=== PATIENT | female | born 1960 | race Caucasian/White ===

== ENCOUNTER 2025-02-18 17:19 | Observation (INO) ==
--- NOTE | 2025-02-18 17:33 | ED Physician Documentation ---
History of Present Illness Stated complaint Stated Complaint: HIGH BLOOD SUGAR Chief complaint Chief Complaint: General History obtained from History obtained from: Patient and EMS Additonal information Additional information: 65-year-old woman with history of dementia and diabetes sent in from [facility] for uncontrolled blood sugars. It looks like she was out of the facility for a few days, it is not clear why. On return she was started on her prior doses of insulin although couple of days ago she was switched from Lantus to a biosimilar. She was getting 7 units in the morning and 3 in the evening, now is getting 8 in the morning and 6 in the evening as well as a sliding scale but the max dose on the sliding scale is 5 units of Humalog. Patient is unreliable historian. She does not know why she is here. Meds/Allgy Allergies Allergies Allergy/AdvReac Type Severity Reaction Status Date / Time No Known Drug Allergies Allergy Verified 02/18/25 17:25 PFSH Active Problems All Active Problems (Updated 02/18/25 @ 19:34 by Humberto You MD) Acute kidney injury superimposed on CKD (Acute) Uncontrolled diabetes mellitus (Acute) Social History Social History Do you feel safe in your home environment?: Yes Suffered physical, verbal, emotional, or financial abuse?: No Exam Exam Vital Signs: Vital Signs x48h Temp Pulse Resp BP Pulse Ox 02/18/25 19:22 72 18 101/83 98 02/18/25 17:25 36.8 C 60 16 101/83 98 Constitutional Alert but confused, in no distress with unremarkable vital signs Gastrointestinal abdomen normal to inspection, abdomen soft to palpation and nontender to palpation Results Vitals Vitals: Vital Signs - 24 hr 02/18/25 17:25 02/18/25 19:22 Temperature 36.8 C Temperature Source Tympanic Pulse Rate 60 72 Respiratory Rate 16 18 Blood Pressure 101/83 101/83 O2 Saturation 98 98 O2 Source Room air Room air Pain Intensity 0 0 Oxygen O2 Source Room air Labs Labs: Laboratory Tests 02/18/25 02/18/25 02/18/25 17:28 17:43 18:43 WBC 5.9 RBC 3.63 L Hgb 11.1 L Hct 34.8 L MCV 95.9 MCH 30.6 MCHC 31.9 L RDW 13.3 Plt Count 215 MPV 11.1 H Neut # (Auto) 4.6 Lymph # (Auto) 0.8 L [place] # (Auto) 0.4 Eos # (Auto) 0.1 Baso # (Auto) 0.0 Absolute Nucleated RBC 0.00 Nucleated RBC % 0.0 Sodium 132 L Potassium 4.2 Chloride 100 L Carbon Dioxide 24 Anion Gap 8.0 BUN 44 H Creatinine 2.6 H Estimated GFR (MDRD) 19 L Glucose 536 H* POC Whole Bld Glucose 488 476 Calcium 8.7 Total Bilirubin 0.4 AST 20 ALT 15 Alkaline Phosphatase 94 Total Protein 6.3 L Albumin 3.7 Globulin 2.6 Albumin/Globulin Ratio 1.4 PD Medical Decision Making ED course ED course: 65-year-old woman with memory issues presents from a memory care facility with high blood sugars. She is on relatively low doses of insulin, and she was seen by me and we started IV fluids and insulin. Workup demonstrates modest anemia on CBC and CMP showing hyperglycemia with probably pseudohyponatremia, she also has prerenal azotemia of the acuity which is unclear. I do not have any old labs on her. I called [facility] and they tell me she was hospitalized at [facility] a few days ago so we will try to get a discharge summary to see if the kidney issue is acute versus chronic. After the first 10 units of insulin, IV fluids and an hour her blood sugar came down to 476. 10 units of regular insulin was repeated. 64-year-old woman with recalcitrant type 2 diabetes. Initially unaccompanied. Later her friend/POA showed up and confirmed that the kidney function probably is acute and they have been having trouble with her blood sugars lately. Given her recalcitrant hyperglycemia and LOULOU on CKD spoke with MIRIAM Quintero for o bservation at 7:30 PM. Discharge Plan Discharge Patient Disposition: ED Place in Observation Condition: Fair Clinical Impression: Uncontrolled diabetes mellitus, Acute kidney injury superimposed on CKD Print Language: Yi Stand Alone Forms: PCP List
[2025-02-18] MEDS: SODIUM CHLORIDE 0.9% 1,000 ML IV STA (17:40)
[2025-02-18] MEDS: INSULIN REGULAR, HUMAN 300 UNIT/3 ML PEN IVP STA ×2 (17:42→18:53)
[2025-02-18 17:48] LABS: BASOPHILS % (AUTO) 0.7 %; EOSINOPHILS # (AUTO) 0.1 10^3/uL (0.0-0.7); EOSINOPHILS % (AUTO) 0.9 %; HCT - HEMATOCRIT 34.8 % (37.0-47.0); HGB - HEMOGLOBIN 11.1 g/dL (12.0-16.0); LYMPHOCYTES # (AUTO) 0.8 10^3/uL (1.5-3.5); LYMPHOCYTES % (AUTO) 14.2 %; MEAN CORPUSCULAR HEMOGLOBIN 30.6 pg (27.0-31.0); MEAN CORPUSCULAR HGB CONC 31.9 g/dL (32.0-36.0); MEAN CORPUSCULAR VOLUME 95.9 fL (81.0-99.0); MEAN PLATELET VOLUME 11.1 fL (7.9-10.8); MONOCYTES # (AUTO) 0.4 10^3/uL (0.0-1.0); MONOCYTES % (AUTO) 6.3 %; NEUTROPHILS # (AUTO) 4.6 10^3/uL (1.5-6.6); NEUTROPHILS % (AUTO) 77.6 %; PLT - PLATELET COUNT 215 10^3/uL (130-450); RED BLOOD COUNT 3.63 10^6/uL (4.20-5.40); RED CELL DISTRIBUTION WIDTH 13.3 % (12.0-15.0); WHITE BLOOD COUNT 5.9 x10^3/uL (4.8-10.8)
[2025-02-18 18:10] LABS: ALBUMIN 3.7 g/dL (3.2-5.5); ALBUMIN/GLOBULIN RATIO 1.4 (1.0-2.2); BILIRUBIN,TOTAL 0.4 mg/dL (0.2-1.0); CALCIUM 8.7 mg/dL (8.5-10.3); CREATININE 2.6 mg/dL (0.6-1.3); POTASSIUM 4.2 mmol/L (3.5-4.5); TOTAL PROTEIN 6.3 g/dL (6.4-8.9)
[2025-02-18] MEDS: SODIUM CHLORIDE 0.9% 1,000 ML IV ONE (19:49)
--- NOTE | 2025-02-18 20:47 | HISTORY & PHYSICAL EXAMINATION ---
Chief Complaint Chief Complaint Chief Complaint: High blood sugar History of Present Illness Admitted From Admitted From:: [facility] History Obtained From History obtained from: Patient and ex- at bedside History of Present Illness HPI Comment/Other: 64-year-old female with dementia, DM and CKD stage III who had recently been held in observation at [facility] in [place] for acute kidney injury on top of CKD. She was discharged to [facility], ex reports that the insulin regimen that she was on there does not exactly meet what endocrinology at [facility] recommended. Her blood sugars have increased, and it was 536 on chemistry at presentation. In the ER, she was noted to have a creatinine of 2.6. It is believed that this is an LOULOU on top of her CKD stage III likely brought on by her uncontrolled hyperglycemia. She received 10 units of insulin, which brought her sugar down to 476. She was given another 10 units of insulin and an IV fluid bolus and hospitalist was contacted for observation for hyperglycemia and acute kidney injury Meds/Allgy Home Medications Ambulatory Orders Medication Instructions Recorded Confirmed citalopram 10 mg tablet 20 mg PO DAILY 02/18/2506/08 galantamine 24 mg 24 hr 24 mg PO AC 02/18/25 5 capsule,extended release insulin glargine 100 unit/mL (3 8 unit subcut DAILY 02/19/25 mL) subcutaneous pen (Lantus Solostar U-100 Insulin) insulin lispro 100 unit/mL 1 - 5 unit subcut TIDWM 05/0802/19/25 subcutaneous pen memantine 10 mg tablet 10 mg PO BID 02/18/25 trazodone 50 mg tablet 50 - 100 mg PO QPM PRN insom nikhil 02/18/25 02/19/25 cholecalciferol (vitamin D3) 50 50 mcg PO DAILY 02/19/25 mcg (2,000 unit) capsule cyanocobalamin (vitamin B-12) 250 250 mcg PO DAILY 06/0802/19/25 mcg tablet (Vitamin B-12) insulin glargine 100 unit/mL (3 4 unit subcut QPM 06/0802/19/25 mL) subcutaneous pen (Basaglar KwikPen U-100 Insulin) Allergies Allergies Allergy/AdvReac Type Severity Reaction Status Date / Time No Known Drug Allergies Allergy Verified 02/18/25 17:25 PFSH Active Problems All Active Problems (Updated 02/18/25 @ 21:39 by Sarah Frankel RN) Acute kidney injury superimposed on CKD (Acute) Uncontrolled diabetes mellitus (Acute) Social History Social History Smoking Status: Never smoker Second hand tobacco smoke exposure: No Do you dip or chew tobacco?: No Do you vape?: No Relationship: Friend Level: Independent Do you feel safe in your home environment?: Yes Suffered physical, verbal, emotional, or financial abuse?: No Review of Systems Patient and family at bedside report absolutely no symptoms, only that she had a high blood sugar Status of ROS: 10 or more systems reviewed and unremarkable except as noted in history and below Exam Exam Vital Signs: Vital Signs x48h Temp Pulse Resp BP Pulse Ox 02/19/25 09:00 36.4 C L 53 L 18 138/63 H 99 02/19/25 04:58 36.3 C L 54 L 18 141/65 H 98 Constitutional normal general appearance and no apparent distress Elderly appearing female in no acute distress HENMT normocephalic and head/scalp atraumatic Eyes PERRL Neck/C-Spine visual inspection normal Lymph no lymphadenopathy noted Chest inspection of chest normal Respiratory breath sounds equal bilaterally Cardiovascular normal heart rate noted and regular rhythm noted Gastrointestinal abdomen normal to inspection Extremities normal to inspection Neurology GCS 15 Psychiatry Intermittently confused, demented at baseline Skin skin color normal Conclusion/Plan Problem List (1) Acute kidney injury superimposed on CKD: Plan: Received 1 L fluid bolus in the ER I ordered an additional liter of saline BMP in a.m. Ex- at bedside reports that she has had a renal ultrasound at a recent bilingual speech language pathologist visit, and that it is consistent with CKD She is probably just dehydrated from having such a high sugar, hyperglycemia managed as below (2) Uncontrolled diabetes mellitus: Plan: Ex- reports that this is type 1 diabetes. She states that the facility was not following the recommended insulin regimen from endocrinology. Nutrition consult for diabetes management A1c in a.m. I started her on 10 units of Lantus twice daily and a moderate sliding scale insulin Facility records show 8 units Lantus in the morning and 6 at night as well as a low sliding scale insulin Plan Placed in observation DNR/DNI Her ex- is her surrogate decision maker and power of erisa attorney Lab Results Lab results reviewed: Yes 02/19/25 05:00 02/19/25 05:00 Core Measures Anticipated LOS I expect patient to be DC'd or transferred within 96 hours.: Yes DVT/VTE - Prophylaxis VTE/DVT Prophylaxis med ordered at admit?: Yes
[2025-02-18] MEDS ORDERED: INSULIN GLARGINE-YFGN 300 UNIT/3 ML PEN SUBQ SCH (21:00)
[2025-02-18] MEDS ORDERED: ONDANSETRON ODT 4 MG TABLET TL PRN (21:13)
[2025-02-18] MEDS ORDERED: ACETAMINOPHEN 325 MG TABLET PO PRN (21:13)
[2025-02-18] MEDS ORDERED: ONDANSETRON 4 MG/2 ML VIAL IVP PRN (21:13)
[2025-02-18] MEDS ORDERED: SODIUM CHLORIDE FLUSH 0.9% 10 ML SYRINGE IVP PRN (21:13)
[2025-02-18] MEDS: LACTATED RINGERS 1,000 ML IV SCH (22:01)
[2025-02-18] MEDS: INSULIN GLARGINE-YFGN 300 UNIT/3 ML PEN SUBQ SCH (22:04)
[2025-02-18] MEDS: INSULIN LISPRO 300 UNIT/3 ML PEN SUBQ SCH (22:06)
[2025-02-18] MEDS: SODIUM CHLORIDE FLUSH 0.9% 10 ML SYRINGE IVP SCH (22:12)
[2025-02-19 05:30] LABS: BASOPHILS # (AUTO) 0.1 10^3/uL (0.0-0.1); BASOPHILS % (AUTO) 0.9 %; EOSINOPHILS # (AUTO) 0.1 10^3/uL (0.0-0.7); EOSINOPHILS % (AUTO) 2.4 %; HCT - HEMATOCRIT 36.2 % (37.0-47.0); HGB - HEMOGLOBIN 11.7 g/dL (12.0-16.0); LYMPHOCYTES # (AUTO) 1.2 10^3/uL (1.5-3.5); LYMPHOCYTES % (AUTO) 22.4 %; MEAN CORPUSCULAR HEMOGLOBIN 30.7 pg (27.0-31.0); MEAN CORPUSCULAR HGB CONC 32.3 g/dL (32.0-36.0); MEAN PLATELET VOLUME 10.9 fL (7.9-10.8); MONOCYTES # (AUTO) 0.4 10^3/uL (0.0-1.0); NEUTROPHILS # (AUTO) 3.6 10^3/uL (1.5-6.6); NEUTROPHILS % (AUTO) 66.1 %; PLT - PLATELET COUNT 210 10^3/uL (130-450); RED BLOOD COUNT 3.81 10^6/uL (4.20-5.40); RED CELL DISTRIBUTION WIDTH 13.2 % (12.0-15.0); WHITE BLOOD COUNT 5.4 x10^3/uL (4.8-10.8)
[2025-02-19 05:50] LABS: CALCIUM 8.6 mg/dL (8.5-10.3); CREATININE 2.2 mg/dL (0.6-1.3); POTASSIUM 3.3 mmol/L (3.5-4.5)
[2025-02-19] MEDS: INSULIN LISPRO 300 UNIT/3 ML PEN SUBQ SCH (08:13)
[2025-02-19 08:22] LABS: ESTIMATED AVERAGE GLUCOSE 171 mg/dL (70-100); HEMOGLOBIN A1c% 7.6 % (4.27-6.07)
[2025-02-19] MEDS: ENOXAPARIN 40 MG/0.4 ML SYRINGE SUBQ SCH (09:18)
[2025-02-19 09:31] VITALS: O2SAT 99
[2025-02-19] MEDS: POTASSIUM CHLORIDE 20 MEQ TABLET PO ONE (10:33)
--- NOTE | 2025-02-19 11:28 | PHARMACY PROGRESS NOTE ---
Best Possible Medication History Admit Date and Time: 02/18/252028 Home Medications Medication Instructions Recorded Confirmed Type citalopram 10 mg tablet 20 mg PO DAILY 02/18/2506/08 History galantamine 24 mg 24 hr 24 mg PO AC 02/18/25 5 History capsule,extended release insulin glargine 100 unit/mL (3 8 unit subcut DAILY 02/19/25 History mL) subcutaneous pen (Lantus Solostar U-100 Insulin) insulin lispro 100 unit/mL 1 - 5 unit subcut TIDWM 05/0802/19/25 History subcutaneous pen memantine 10 mg tablet 10 mg PO BID 02/18/25 History trazodone 50 mg tablet 50 - 100 mg PO QPM PRN insom nikhil 02/18/25 02/19/25 History cholecalciferol (vitamin D3) 50 50 mcg PO DAILY 02/19/25 History mcg (2,000 unit) capsule cyanocobalamin (vitamin B-12) 250 250 mcg PO DAILY 06/0802/19/25 History mcg tablet (Vitamin B-12) insulin glargine 100 unit/mL (3 4 unit subcut QPM 06/0802/19/25 History mL) subcutaneous pen (Basaglar KwikPen U-100 Insulin) Processed by: Pharmacy Medications reviewed in ED?: No Medication History completed: Yes Patient Interview: Completed Secondary Source(s): Spouse/Significant other, Pharmacy records, Insurance records and Facility MAR as ONLY source [facility] Statement: As the person ultimately responsible for medication therapy, providers are able to order a medication from an existing home medication list in [facility] via the "Reconcile Routine" prior to Confirmation of that medication by technology support analyst. Such practice is discouraged except when the physician, in their clinical judgment, deems that a medical need exists for a medication without regard to previous use.
--- NOTE | 2025-02-19 13:25 | Discharge Summary ---
Discharge Summary Admit Date: 02/18/25 Discharge Date: 02/19/25 Discharging Provider: Nav Quintero NP Primary Care Provider: Audi Boyle Code Status: Do Not Attempt Resuscitation Discharge Facility Name: [facility] DIAGNOSES Admission Diagnoses: Acute kidney injury superimposed on CKD Uncontrolled diabetes mellitus with hyperglycemia Discharge Diagnoses with Status of Each Condition: Acute kidney injury superimposed on CKDnow at baseline Uncontrolled diabetes mellitus with hyperglycemiahypoglycemia resolved, type 1 diabetes chronic. DC on insulin pump HPI History of Present Illness: 64-year-old female with dementia, DM and CKD stage III who had recently been held in observation at [facility] in [place] for acute kidney injury on top of CKD. She was discharged to [facility], ex reports that the insulin regimen that she was on there does not exactly meet what endocrinology at [facility] recommended. Her blood sugars have increased, and it was 536 on chemistry at presentation. In the ER, she was noted to have a creatinine of 2.6. It is believed that this is an LOULOU on top of her CKD stage III likely brought on by her uncontrolled hyperglycemia. She received 10 units of insulin, which brought her sugar down to 476. She was given another 10 units of insulin and an IV fluid bolus and hospitalist was contacted for observation for hyperglycemia and acute kidney injury HOSPITAL COURSE Hospital Course: Patient was held in observation overnight and received IV fluids with resolution of LOULOU. She received multiple doses of insulin with resolution of hyperglycemia. She was evaluated by our certified lactation educator/electrocardiograph repairer, and plan was arranged for her to restart her insulin pump and discharged with updated Lantus dose. [facility] and has been instructed to follow-up with endocrinology/certified lactation educator ALLERGIES Allergies Allergy/AdvReac Type Severity Reaction Status Date / Time No Known Drug Allergies Allergy Verified 02/18/25 17:25 MEDICATIONS Ambulatory Orders Medication Instructions Recorded Confirmed citalopram 10 mg tablet 20 mg PO DAILY 02/18/2506/08 galantamine 24 mg 24 hr 24 mg PO AC 02/18/25 5 capsule,extended release memantine 10 mg tablet 10 mg PO BID 02/18/25 trazodone 50 mg tablet 50 - 100 mg PO QPM PRN insom nikhil 02/18/25 02/19/25 cholecalciferol (vitamin D3) 50 50 mcg PO DAILY 02/19/25 mcg (2,000 unit) capsule cyanocobalamin (vitamin B-12) 250 250 mcg PO DAILY 06/0802/19/25 mcg tablet (Vitamin B-12) insulin glargine 100 unit/mL (3 8 unit (0.08 mL) subcu t BIDWM 30 02/19/25 02/19/25 mL) subcutaneous pen (Lantus days #0 mL Solostar U-100 Insulin) PHYSICAL EXAM AT DISCHARGE Vital Signs: Vital Signs x48h Temp Pulse Resp BP Pulse Ox 02/19/25 13:00 36.5 C 60 18 146/75 H 99 General Appearance: positive No acute distress and Alert ENT: positive ENT inspection nml Neck: positive Nml inspection Respiratory: positive Chest non-tender and No respiratory distress Cardiovascular: positive Regular rate & rhythm Peripheral Pulses: positive 2+ Abdomen: positive Non-tender Back: positive Nml inspection Skin: positive Color nml Extremities: positive Non-tender Neurologic/Psychiatric: positive Other (Pleasantly confused at times, follows commands) LABS 02/19/25 05:00 02/19/25 05:00 FOLLOW UP Follow Up: With endocrinology, diabetes management TIME SPENT Time Spent in Discharge (Minutes): 40 Discharge Plan Discharge Patient Disposition: 01 Home, Self Care Condition: Fair Medically Cleared Date:: 02/19/25 Prescriptions: Continued trazodone 50 mg tablet 50 - 100 mg PO QPM PRN (Reason: insomnia) Patient Comments: Take 1-2 tablets by mouth every 24 hours as needed for Insomnia (Give initial dose of 50 mg, if ineffective after 1 hr, repeat dose of 50 mg for total of 100 mg/) citalopram 10 mg tablet 20 mg PO DAILY memantine 10 mg tablet 10 mg PO BID Patient Comments: TAKE ONE TABLET BY MOUTH TWICE DAILY galantamine 24 mg capsule,ext rel. pellets 24 hr 24 mg PO AC Patient Comments: TAKE 1 CAPSULE (24 MG TOTAL) BY MOUTH DAILY WITH BREAKFAST IN THE MORNING. cyanocobalamin (vitamin B-12) [Vitamin B-12] 250 mcg tablet 250 mcg PO DAILY cholecalciferol (vitamin D3) 50 mcg (2,000 unit) capsule 50 mcg PO DAILY Changed insulin glargine [Lantus Solostar U-100 Insulin] 100 unit/mL (3 mL) insulin pen 8 unit SUBCUT BIDWM 30 Days Qty: 0 0RF Patient Comments: 8 units subcutaneously qam, 4u qpm per proxy Discontinued insulin lispro 100 unit/mL insulin pen 1 - 5 unit SUBCUT TIDWM Patient Comments: Used on a sliding scale; 1 Unit per 10g carbs, 1 UNIT FOR EVERY 50 POINTS OF BG OVER 150 insulin glargine [Basaglar KwikPen U-100 Insulin] 100 unit/mL (3 mL) insulin pen 4 unit subcut QPM Diet: Diabetic Interventions: Discharge Last Done: 02/19/25 13:54 Discharge Checklist - Nursing Last Done: 02/19/25 13:54 Health Concerns: You came into the hospital because you had uncontrollably high blood sugars and a acute kidney injury superimposed on your chronic kidney disease. You were held overnight given IV fluids and several doses of insulin. Today, your sugar is well-controlled and your LOULOU has resolved. I would like for you to discharge with the following changes to your medication regimen: I would like for you to take 8 units of Lantus twice daily, maintain your CGM and insulin pump as managed by endocrinology. Any further recommendations for your diabetes management should come from them. Please reach out to your primary care provider and notify them that you were in the hospital and schedule a hospital follow-up appointment Print Language: Bots[place]an Patient Instructions: Diabetes Type 1 Stand Alone Forms: PCP List
[2025-02-19 13:27] VITALS: BP 146/75; TEMP 97.7
[2025-02-19] MEDS ORDERED: traZODone 50 MG TABLET PO SCH (21:00)
== END 2025-02-19 13:55 | disposition home or self-care (01) ==
LOC: MS2 17:19 → EDBD 17:19 → ED 17:19 → MS2 21:13
PROVIDERS: ADMIT Nurse Practitioner Acute Care; ATTEND Nurse Practitioner Acute Care
DX: N18.30 Chronic kidney disease, stage 3 unspecified; F03.90 Unspecified dementia, unspecified severity, without behavioral disturbance, psychotic disturbance, mood disturbance, and anxiety; Z96.41 Presence of insulin pump (external) (internal); N17.9 Acute kidney failure, unspecified; Z79.899 Other long term (current) drug therapy; E10.65 Type 1 diabetes mellitus with hyperglycemia; Z66 Do not resuscitate; Z63.5 Disruption of family by separation and divorce; E10.22 Type 1 diabetes mellitus with diabetic chronic kidney disease; Z79.4 Long term (current) use of insulin